=== PATIENT | male | born 1965 | race Caucasian/White ===

== ENCOUNTER 2020-05-25 20:56 | Emergency (ER) | payer MEDICAID ==
[2020-05-25] MEDS ORDERED: Ketorolac 30 MG/ML SDV IM ONE (21:11)
--- NOTE | 2020-05-25 21:15 | EDM.PDOC ---
ED HPI GENERAL MEDICAL PROBLEM - General Chief Complaint: Back Pain or Injury Stated Complaint: RIGHT SIDE BACK AND LEG PAIN Time Seen by Provider: 05/25/20 21:11 Source of Information: Reports: Patient History Limitations: Reports: No Limitations - History of Present Illness INITIAL COMMENTS - FREE TEXT/NARRATIVE: onset sciatic like pain past few days, had prior back surgery 2008 for left side from bulging disks. Right Lower Back Pain Score (Numeric/FACES): 10 - Related Data Allergies Allergy/AdvReac Type Severity Reaction Status Date / Time codeine Allergy Hives Verified 05/25/20 21:06 Home Meds: Home Meds . [Unable to Verify Home Med List] 05/25/20 [History] ED ROS GENERAL - Review of Systems Review Of Systems: Comprehensive ROS is negative, except as noted in HPI. ED EXAM,LOWER BACK PAIN/INJURY - Physical Exam Exam: See Below Exam Limited By: No Limitations General Appearance: Alert, WD/WN, Mild Distress, Other (discomfort) Ears: Hearing Grossly Normal Throat/Mouth: Normal Voice, No Airway Compromise Head: Atraumatic Neck: Non-Tender, Full Range of Motion Respiratory/Chest: No Respiratory Distress Cardiovascular: Regular Rate, Rhythm GI/Abdominal: Soft, Non-Tender (Male) Exam: Deferred Rectal (Males) Exam: Deferred Back Exam: Muscle Spasm, Paraspinal Tenderness, Other (right LS region, NV wnl, gait limited to pain) Neurological: Alert, Normal Mood/Affect, No Motor/Sensory Deficits, Oriented x 3 Psychiatric: Normal Affect, Normal Mood Skin Exam: Warm, Dry, Normal Color Lymphatic: No Adenopathy Course - Vital Signs Last Recorded V/S: Last Vital Signs Temp 36.6 C 05/25/20 21:00 Pulse 69 05/25/20 21:00 Resp 16 05/25/20 21:00 BP 158/94 H 05/25/20 21:00 Pulse Ox 100 05/25/20 21:00 - Orders/Labs/Meds Meds: Medications Discontinued Medications Generic Name Dose Route Start Last Admin Trade Name Freq PRN Reason Stop Dose Admin Cyclobenzaprine HCl 10 mg 05/25/20 21:49 Flexeril PO 05/25/20 21:50 ONETIME ONE Ketorolac Tromethamine 30 mg 05/25/20 21:11 05/25/20 21:17 Toradol IM 05/25/20 21:12 30 mg ONETIME ONE Administration - Re-Assessments/Exams Free Text/Narrative Re-Assessment/Exam: 05/25/20 21:50 re-exam; s/p toradol = much better Departure - Departure Time of Disposition: 21:50 Disposition: Home, Self-Care 01 Condition: Good Clinical Impression: Sciatica Qualifiers: Laterality: right Qualified Code(s): M54.31 - Sciatica, right side - Discharge Information Instructions: Sciatica, [id number] Forms: ED Department Discharge Additional Instructions: 1) avoid bending lifting straining next 48 hours 2) try heat pad to sore area 3) see family doctor for MRI SCAN rx given; toradol 10mg bid prn x 12 Sepsis Event Note (ED) - Evaluation Sepsis Screening Result: No Definite Risk - Focused Exam Vital Signs: Vital Signs Temp Pulse Resp BP Pulse Ox 05/25/20 21:00 36.6 C 69 16 158/94 H 100
[2020-05-25] MEDS ORDERED: Cyclobenzaprine 10 MG Tab PO ONE (21:49)
== END 2020-05-25 22:00 | disposition home or self-care (01) ==
LOC: DL.ED 20:56
DX: M54.41 Lumbago with sciatica, right side (principal); Z88.5 Allergy status to narcotic agent
CPT/HCPCS: 96372; 99282; 99283; A9270; J1885

== ENCOUNTER 2021-06-18 16:26 | Emergency (ER) | payer MEDICAID ==
[2021-06-18 17:55] LABS: CORONAVIRUS COVID-19 NAA POSITIVE (NEGATIVE)
== END 2021-06-18 18:32 | disposition home or self-care (01) ==
LOC: DL.ED 16:26
DX: U07.1 COVID-19 (principal); I10 Essential (primary) hypertension; Z88.5 Allergy status to narcotic agent
CPT/HCPCS: 0240U; 99284

== ENCOUNTER 2023-02-07 16:40 | Emergency (ER) | payer MEDICAID ==
[2023-02-07] MEDS ORDERED: cefTRIAXone 1 GM, Lidocaine 1% 2.1 ML IM ONE ×2 (17:14)
== END 2023-02-07 18:10 | disposition home or self-care (01) ==
LOC: DL.ED 16:40
DX: H66.002 Acute suppurative otitis media without spontaneous rupture of ear drum, left ear (principal); I10 Essential (primary) hypertension; E03.9 Hypothyroidism, unspecified; Z88.5 Allergy status to narcotic agent
CPT/HCPCS: 96372; 99282; J0696; J3490

== ENCOUNTER 2023-07-11 07:00 | Day surgery (SDC) | payer MEDICAID ==
[2023-07-11] MEDS ORDERED: fentaNYL 100 MCG/2 ML SDV IV ONE (07:01)
[2023-07-11] MEDS ORDERED: Midazolam 1 MG/ML 2 ML SDV IV ONE (07:01)
[2023-07-11] MEDS: Dextrose 5%-0.45% NaCl 1,000 ML IV SCH (07:17)
[2023-07-11] MEDS ORDERED: fentaNYL 100 MCG/2 ML SDV ONE (07:37)
[2023-07-11] MEDS ORDERED: Midazolam 1 MG/ML 2 ML SDV ONE (07:37)
[2023-07-11] MEDS: fentaNYL 100 MCG/2 ML SDV IV ONE ×2 (08:09→08:10)
[2023-07-11] MEDS: Midazolam 1 MG/ML 2 ML SDV IV ONE ×2 (08:10→08:11)
== END 2023-07-11 09:55 | disposition home or self-care (01) ==
LOC: DL.ENDO 07:00
PROVIDERS: ATTEND Internal Medicine Gastroenterology
DX: K29.50 Unspecified chronic gastritis without bleeding (principal); E11.9 Type 2 diabetes mellitus without complications; I10 Essential (primary) hypertension; E78.5 Hyperlipidemia, unspecified; E78.00 Pure hypercholesterolemia, unspecified; R12 Heartburn; Z79.899 Other long term (current) drug therapy; Z88.5 Allergy status to narcotic agent
CPT/HCPCS: 43239; 87077; J2250; J3010; J7042

== ENCOUNTER 2023-07-14 06:56 | Day surgery (SDC) | payer MEDICAID ==
[2023-07-14] MEDS ORDERED: fentaNYL 100 MCG/2 ML SDV IV ONE (06:57)
[2023-07-14] MEDS ORDERED: Midazolam 1 MG/ML 2 ML SDV IV ONE (06:57)
[2023-07-14] MEDS ORDERED: fentaNYL 100 MCG/2 ML SDV ONE (07:10)
[2023-07-14] MEDS ORDERED: Midazolam 1 MG/ML 2 ML SDV ONE (07:10)
[2023-07-14] MEDS: Dextrose 5%-0.45% NaCl 1,000 ML IV SCH (07:27)
[2023-07-14] MEDS: fentaNYL 100 MCG/2 ML SDV IV ONE ×6 (08:22→08:50)
[2023-07-14] MEDS: Midazolam 1 MG/ML 2 ML SDV IV ONE ×8 (08:23→08:55)
== END 2023-07-14 10:30 | disposition home or self-care (01) ==
LOC: DL.ENDO 06:56
PROVIDERS: ATTEND Internal Medicine Gastroenterology
DX: K57.31 Diverticulosis of large intestine without perforation or abscess with bleeding (principal); K64.8 Other hemorrhoids; K59.09 Other constipation; I10 Essential (primary) hypertension; E11.9 Type 2 diabetes mellitus without complications; E03.9 Hypothyroidism, unspecified; F32.A Depression, unspecified; F41.9 Anxiety disorder, unspecified; E78.5 Hyperlipidemia, unspecified; Z79.899 Other long term (current) drug therapy; Z88.5 Allergy status to narcotic agent
CPT/HCPCS: 45378; J2250; J3010; J7042